=== PATIENT | male | born 1950 | race Caucasian/White ===

== ENCOUNTER 2021-03-12 08:43 | Observation (INO) | payer MEDICARE ==
[2021-03-08 12:50] VITALS: BP 138/70
[2021-03-12] VITALS (18 sets, daily range): BP systolic 96–123; BP diastolic 47–72
[~2021-03-12] VITALS: Ht 175.3 cm; Wt 118.8 kg
[2021-03-12] MEDS: 0.9%NACL 1000ML 1,000 ML IV SCH ×2 (01:43→18:38)
[~2021-03-12 08:43] MED LIST: ACET-2027 PO; AEC81 PO; AMLO-257 PO; ATOR40TA71 PO; BENA40TA92 PO; CELE200 PO; DULA1.5P SQ; DULO60CA64 PO; EMPA25TA PO; FAMO20TA8 PO; FURO20TA6 PO; GABA-529 PO; INSU100V37 SQ; PIOG30TA70 PO; TRAM50TA4 PO; TRAZ-185 PO
[2021-03-12] MEDS ORDERED: 0.9%NACL 1000ML 1,000 ML IV ONE (08:49)
[2021-03-12] MEDS: CEFAZOLIN SODIUM 1 GM VIAL ONE ×2 (09:17→10:30)
[2021-03-12] MEDS ORDERED: LIDOCAINE PF 100MG/5ML (2%) SYRINGE 5ML ONE (09:48)
[2021-03-12] MEDS ORDERED: DEXAMETHASONE SOD PHOSPHATE 10MG/ML 1ML VIAL ONE (09:48)
[2021-03-12] MEDS ORDERED: MIDAZOLAM HCL 1 MG/ML 2ML VIAL ONE (09:48)
[2021-03-12] MEDS ORDERED: SUCCINYLCHOLINE CHLORIDE 20 MG/ML 10 ML VIAL ONE (09:48)
[2021-03-12] MEDS ORDERED: GLYCOPYRROLATE 1 MG/5 ML SYRINGE ONE (09:48)
[2021-03-12] MEDS ORDERED: PROPOFOL 10 MG/ML 20ML VIAL IV ONE (09:48)
[2021-03-12] MEDS ORDERED: NEOSTIGMINE 5MG/5ML SYR IV ONE (09:48)
[2021-03-12] MEDS ORDERED: FENTANYL CITRATE PF 50 MCG/1 ML 2ML VIAL ONE (09:49)
[2021-03-12] MEDS ORDERED: ROCURONIUM 10MG/1ML SYR 10 MG/ML ML ONE ×2 (09:49→10:54)
[2021-03-12] MEDS ORDERED: ONDANSETRON 4MG INJ ONE (09:49)
[2021-03-12] MEDS ORDERED: TRANEXAMIC ACID 1000MG/10ML ONE (09:59)
[2021-03-12] MEDS ORDERED: HYDROCODONE/ACETAMINOPHEN 10/325 MG TAB PO PRN (10:30)
[2021-03-12] MEDS ORDERED: MORPHINE 4 MG SYG IVP PRN (10:30)
[2021-03-12] MEDS ORDERED: HYDROCODONE/ACETAMINOPHEN 5/325 MG TAB PO PRN (10:30)
[2021-03-12] MEDS ORDERED: ONDANSETRON 4MG INJ IVP PRN (10:30)
[2021-03-12] MEDS: ACETAMINOPHEN 500 MG TABLET PO SCH ×2 (10:30→18:34)
[2021-03-12] MEDS: INSULIN HUMULIN R 100 UNIT/ML 3ML SQ SCH ×3 (11:30→20:48)
[2021-03-12] MEDS: TRAMADOL HCL 50 MG TABLET PO SCH ×2 (12:00→18:35)
[2021-03-12] MEDS ORDERED: MEPERIDINE-PF 25 MG/ML SYG ONE (12:19)
[2021-03-12] MEDS: GABAPENTIN 300 MG CAPSULE PO SCH ×2 (14:00→20:38)
[2021-03-12] MEDS: CEFAZOLIN SODIUM 1 GM VIAL IVP SCH (18:36)
[2021-03-12] MEDS: FAMOTIDINE 20MG TAB PO SCH (20:38)
[2021-03-12] MEDS: CELECOXIB 200 MG CAP PO SCH (20:38)
[2021-03-12] MEDS: ASPIRIN 81 MG EC TAB PO SCH (20:39)
[2021-03-12] MEDS ORDERED: DULOXETINE HCL 30 MG CAP PO SCH (21:00)
[2021-03-12] MEDS ORDERED: TRESIBA SQ SCH (21:00)
[2021-03-12] MEDS ORDERED: TRAZODONE HCL 50 MG TAB PO SCH (21:00)
[2021-03-13] VITALS: BP 97/55
[2021-03-13] MEDS ORDERED: CEFAZOLIN SODIUM 1 GM VIAL ONE (00:38)
[2021-03-13] MEDS: TRAMADOL HCL 50 MG TABLET PO SCH ×4 (00:59→18:10)
[2021-03-13] MEDS: CEFAZOLIN SODIUM 1 GM VIAL IVP SCH (01:41)
[2021-03-13] MEDS: ACETAMINOPHEN 500 MG TABLET PO SCH ×3 (03:28→18:11)
[2021-03-13 04:47] VITALS: BP 99/58
[2021-03-13 05:53] LABS: HEMATOCRIT 36.9 % (42-54); MEAN CORPUSCULAR HEMOGLOBIN 31.3 pg (27.0-33.0); MEAN CORPUSCULAR HGB CONC 33.1 g/dL (32.0-36.0); MEAN CORPUSCULAR VOLUME 94.6 fL (79-99); RED BLOOD CELL COUNT(AUTO) 3.9 MIL/uL (4.50-6.20); RED CELL DISTRIBUTION WIDTH 13.7 % (11.0-15.5); WHITE BLOOD COUNT (AUTO) 10.2 K/uL (4.8-10.8)
[2021-03-13] MEDS: INSULIN HUMULIN R 100 UNIT/ML 3ML SQ SCH ×3 (06:13→16:34)
[2021-03-13 06:30] LABS: CREATININE 0.9 mg/dL (0.5-1.5); POTASSIUM 4.3 mmol/L (3.5-5.1)
[2021-03-13 07:53] VITALS: BP 109/61
[2021-03-13] MEDS ORDERED: BENAZEPRIL HCL 10 MG TABLET PO SCH (09:00)
[2021-03-13] MEDS ORDERED: JARDIANCE 25 MG PO SCH (09:00)
[2021-03-13] MEDS ORDERED: AMLODIPINE 5 MG TAB PO SCH (09:00)
[2021-03-13] MEDS ORDERED: POLYETHYLENE GLYCOL 3350 17 GM POWD.PACK PO SCH (09:00)
[2021-03-13] MEDS ORDERED: FUROSEMIDE 20 MG TABLET ONE (10:40)
[2021-03-13] MEDS: CELECOXIB 200 MG CAP PO SCH (10:49)
[2021-03-13] MEDS: GABAPENTIN 300 MG CAPSULE PO SCH ×2 (10:49→15:22)
[2021-03-13] MEDS: ASPIRIN 81 MG EC TAB PO SCH (10:50)
[2021-03-13] MEDS: FAMOTIDINE 20MG TAB PO SCH (10:50)
[2021-03-13 10:54] VITALS: BP 94/62
[2021-03-13] MEDS ORDERED: FUROSEMIDE 20 MG TABLET PO SCH (12:24)
[2021-03-13] MEDS ORDERED: TAMSULOSIN HCL 0.4 MG CAP.ER.24H PO SCH (13:00)
[2021-03-13 16:09] VITALS: BP 158/54
[2021-03-15] MEDS ORDERED: BISACODYL 10 MG SUPP.RECT RC PRN (10:30)
[2021-03-19] MEDS ORDERED: **HM**TRULICITY 1.5MG SQ SCH (09:00)
== END 2021-03-13 18:46 | disposition home or self-care (01) ==
LOC: DAH 08:43 → DAHIP 08:44 → DAH 08:44 → 3CH 14:18
PROVIDERS: ADMIT Orthopaedic Surgery; ATTEND Orthopaedic Surgery
DX: M17.12 Unilateral primary osteoarthritis, left knee (principal); E11.9 Type 2 diabetes mellitus without complications; I10 Essential (primary) hypertension; E78.00 Pure hypercholesterolemia, unspecified; Z20.822 Contact with and (suspected) exposure to COVID-19; Z79.899 Other long term (current) drug therapy
CPT/HCPCS: 27447; 36415; 80048; 82948 ×5; 85027; 87635; 87641; 93005; 96374; 96376; 97039 ×2; 97116 ×2; 97161; 97530 ×2; A4215; A4221; A4222; A4223; A4649 ×5; A4663; A5120; A6223; A6260; C1776; C9803; G0378 ×28; G0379; J0330; J0690 ×3; J1100; J1815; J2001; J2175; J2250; J2405; J2704; J2710; J3010; J3490 ×2; J7030 ×3; J7040